=== PATIENT | female | born 1985 | race African-American/Black ===

== ENCOUNTER 2018-03-04 23:30 | Emergency (ER) | payer MEDICAID ==
[~2018-03-04] VITALS: Ht 167.6 cm; Wt 77.1 kg
[2018-03-04] MEDS ORDERED: NKM (23:43)
[2018-03-04 23:47] VITALS: BP 106/72
--- NOTE | 2018-03-04 23:59 | Emergency Room Report ---
History of Present Illness General Chief Complaint: Multiple Trauma/Fall Source: Patient Present Illness HPI Patient present with complaints of a slip and fall earlier this morning patient reports that it was wet outside raining she slipped falling to the ground has pain to bilateral upper shoulder area Mid back Bilateral lower legs Denies any chest pain or shortness of breath denies any head injury or lapse of consciousness Denies any focal weakness Allergies: Coded Allergies: APPLE (Verified Allergy, Unknown, 03/04/18) DIPHENHYDRAMINE (Verified Allergy, Unknown, 03/04/18) Patient History Past Medical History: see triage record Pertinent Family History: none Last Menstrual Period: 2 weeks ago Now: No Reviewed Nursing Documentation: PMH: Agreed; PSxH: Agreed Nursing Documentation-PMH Past Medical History: No Stated History Review of Systems All Other Systems: negative except mentioned in HPI Physical Exam Vital Signs Date Time Temp Pulse Resp B/P (MAP) Pulse Ox O2 Delivery O2 Flow Rate FiO2 03/04/18 23:37 106.0 73 16 106/72 99 Room Air 03/04/18 23:47 99 Sp02 EP Interpretation: reviewed, normal General Appearance: well appearing, no apparent distress Head: normocephalic, atraumatic Eyes: bilateral eye PERRL, bilateral eye EOMI ENT: hearing grossly normal, normal pharynx, TMs + canals normal, uvula midline Neck: full range of motion, supple, no meningismus, no bony tend - However uncomfortable bilateral trapezius, also paraspinal C3-C4 Respiratory: lungs clear, normal breath sounds, no rhonchi, no respiratory distress, no retraction, no accessory muscle use Cardiovascular #1: normal peripheral pulses, regular rate, rhythm, no edema, no gallop, no JVD, no murmur Gastrointestinal: normal bowel sounds, non tender, soft, no mass, no organomegaly, non-distended, no guarding, no hernia, no pulsatile mass, no rebound Genitourinary: no CVA tenderness Musculoskeletal: normal inspection Neurologic: oriented x3, responsive, child caregiver III-XII nml as tested, motor strength/ tone normal, sensory intact Psychiatric: mood/affect normal Skin: normal color, no rash, warm/dry, palpation normal Lymphatic: normal inspection, no adenopathy Medical Decision Making Diagnostic Impression: Primary Impression: Sprain and strain ER Course Patient's clinical history and exam is consistent with musculoskeletal injuries I do not suspect any obvious fractures patient is provided with oral medications and is stable for initial conservative outpatient trial Last Vital Signs Date Time Temp Pulse Resp B/P (MAP) Pulse Ox O2 Delivery O2 Flow Rate FiO2 03/04/18 23:47 98.2 72 16 106/72 99 Room Air 03/04/18 23:47 99 Status: improved Disposition: HOME, SELF-CARE Condition: Improved Additional Instructions: Patient is provided with the discharge instructions notified to follow up with primary doctor in the next 2-3 days otherwise return to the er with any worsening symptoms. Please note that this report is being documented using [employer] technology. This can lead to erroneous entry secondary to incorrect interpretation by the dictating instrument. Giorgio Reina DO Mar 04, 2018 23:59
[2018-03-05] MEDS ORDERED: Methocarbamol 750mg tab ORAL ONE
[2018-03-05] MEDS ORDERED: ROBAXIN-750750 MG PO (00:19)
[2018-03-05] MEDS ORDERED: IBUPROFEN600 MG ORAL (00:19)
[2018-03-05 00:27] VITALS: BP_SYST 106; BP_SYST 112; BP_DIAS 72; BP_DIAS 73
== END 2018-03-05 00:37 | disposition home or self-care (01) ==
LOC: EMR 23:45
DX: S43.402A Unspecified sprain of left shoulder joint, initial encounter (principal); S43.401A Unspecified sprain of right shoulder joint, initial encounter; S13.9XXA Sprain of joints and ligaments of unspecified parts of neck, initial encounter; W01.0XXA Fall on same level from slipping, tripping and stumbling without subsequent striking against object, initial encounter; Y92.89 Other specified places as the place of occurrence of the external cause
CPT/HCPCS: 99282